=== PATIENT | male | born 1955 | race Caucasian/White ===

== ENCOUNTER 2018-11-03 05:13 | Inpatient (IN) ==
--- NOTE | 2018-10-22 12:02 | PAT Medication Instructions ---
Medication Instructions Date of Service October 22, 2018 Home Medications allopurinol 100 mg PO QPM aspirin [Aspirin Low Dose] 81 mg PO QAM atenolol 25 mg PO QAM atorvastatin 20 mg PO QAM fluticasone propion-salmeterol [Advair Diskus] 1 inh INHALATION Q12H lisinopril-hydrochlorothiazide 1 tab PO QAM metformin 1,000 mg PO BID multivitamin 1 tab PO QAM omega 9-kcb-wmj-fish oil [Fish Oil] 1 cap PO QAM omeprazole 20 mg PO QAM sitagliptin [Januvia] 100 mg PO QPM vitamin B complex [Super B-50 Complex] 1 cap PO QAM ASK your prescriber and surgeon aspirin [Aspirin Low Dose] 81 mg PO QAM DO NOT take the morning of surgery lisinopril-hydrochlorothiazide 1 tab PO QAM metformin 1,000 mg PO BID multivitamin 1 tab PO QAM omega 5-nkm-foa-fish oil [Fish Oil] 1 cap PO QAM vitamin B complex [Super B-50 Complex] 1 cap PO QAM Take morning of surgery With a small sip of water, OTHERWISE NOTHING TO EAT OR DRINK AFTER MIDNIGHT: atenolol 25 mg PO QAM atorvastatin 20 mg PO QAM fluticasone propion-salmeterol [Advair Diskus] 1 inh INHALATION Q12H omeprazole 20 mg PO QAM Take evening before surgery allopurinol 100 mg PO QPM fluticasone propion-salmeterol [Advair Diskus] 1 inh INHALATION Q12H metformin 1,000 mg PO BID sitagliptin [Januvia] 100 mg PO QPM Other Notes If you have any questions please call us at [phone] or [phone] or [phone] or [phone]
--- NOTE | 2018-10-22 13:07 | Anesthesiology Consultation ---
Date of Service October 22, 2018 Assessment & Plan (1) Encounter for pre-operative examination: - No previous anesthesia records. Chart Review Chart Review: Acceptable Risk for Surgery and Patient seen in Pre Admission Testing Consults Requested medical (Dr. Xiong (09/24/18)) Per note from PCP, "I am not aware of any contraindications for him having surgery at this time." Teaching & Discussion Pre-Anesthesia Teaching/Discussion Notes: Instructed NPO after midnight before surgery, except medications with 15 cc of water. Medication instructions provided according to the PAT guidelines. History Surgery Operation Date: 11/03/18 13:30 Proposed Procedures p Left Total Knee Arthroplasty - Bob Billings MD Height/Weight Height: 5 ft 9 in Weight: 118.8 kg Allergies Allergy/AdvReac Type Severity Reaction Status Date / Time No Known Allergies Allergy Unknown Verified 10/15/18 13:14 Medications Home Medications Medication Instructions Recorded Confirmed Last Taken allopurinol 100 mg PO QPM 10/15/18 10/15/18 Unknown aspirin [Aspirin Low Dose] 81 mg PO QAM 10/15/18 10/15/18 Unknown atenolol 25 mg PO QAM 10/15/18 10/15/18 Unknown atorvastatin 20 mg PO QAM 10/15/18 10/15/18 Unknown fluticasone propion-salmeterol 1 inh INHALATION Q12H 10/15/18 10/15/18 Unknown [Advair Diskus] lisinopril-hydrochlorothiazide 1 tab PO QAM 10/15/18 10/15/18 Unknown metformin 1,000 mg PO BID 10/15/18 10/15/18 Unknown multivitamin 1 tab PO QAM 10/15/18 10/15/18 Unknown omega 8-ars-gdv-fish oil [Fish Oil] 1 cap PO QAM 10/15/18 10/15/18 Unknown omeprazole 20 mg PO QAM 10/15/18 10/15/18 Unknown sitagliptin [Januvia] 100 mg PO QPM 10/15/18 10/15/18 Unknown vitamin B complex [Super B-50 1 cap PO QAM 10/15/18 10/15/18 Unknown Complex] Past Medical History Medical History Asthma Diabetes mellitus, type 2 GERD (gastroesophageal reflux disease) History of kidney stones Hyperlipidemia Hypertension Left knee DJD Sleep apnea CPAP Exercise / Class Metabolic Activity II 4-5 Yardwork/Stairs/Walk up hill (Able to climb stairs, although only 1 at a time right now. Denies CP or SOB with activity. Is somewhat limited currently due to knee pain. ) Past Family History Family History Mother Family history of diabetes mellitus Past Surgical History Surgical History History of carpal tunnel release of both wrists History of total right knee replacement Hx of cholecystectomy Hx of hernia repair UMBILICAL Hx of nasal septoplasty Past Anesthesia History No Hx of Anesthesia Complications and No Family Hx of Anesthesia Complications History of PONV No Hx of PONV and No Hx of Motion Sickness Social History Smoking Status: Former smoker Smoking cigarettes per day: 1-1.5 ppd x 8-10 years Do You Dip or Chew Tobacco: No Smoking End Date: 1994 Hx Alcohol Use: No Hx Substance Use: No Review of Systems Patient denies chest pain, shortness of breath, dyspnea on exertion, cough, wheezing, palpitations. +Joint Pain (left knee, neck, wrists) +Acid Reflux (Controlled with current diet and medications) +Wheezing (Rare) Physical Exam Vital Signs BP: 129/80 P: 78 R: 16 T: 98.4 SPO2: 98% on RA Constitutional + obese ENMT Thyromental Distance: < 3.5 Finger Breadths (3) Mallampati Class: II Neck normal visual inspection, + thick neck and + facial hair (Advised (Will trim)); neck extension not limited Respiratory normal respiratory effort Auscultation: lungs clear to auscultation bilaterally Cardiovascular Rate/Rhythm: regular rate and regular rhythm Heart Sounds: no murmur Vessels: no carotid bruit Neurologic moves all extremities Psychiatric Orientation: alert and oriented x 3 Testing Laboratory Results 10/22/18 13:39 PT 10.3 Seconds (9.0-12.0) 10/22/18 12:56 INR 1.0 (0.9-1.1) 10/22/18 12:56 APTT 24.5 Seconds (21.0-31.0) 10/22/18 12:56 Hemoglobin A1c 7.8 % (4.5-5.6) H 10/22/18 13:39 Urine Color Yellow 10/22/18 12:56 Urine Appearance Clear (Clear) 10/22/18 12:56 Urine pH 5.0 (4.5-7.5) 10/22/18 12:56 Ur Specific [place] 1.023 (1.000-1.030) 10/22/18 12:56 Urine Protein Negative (Negative) 10/22/18 12:56 Urine Glucose (UA) 3+ (Negative) H 10/22/18 12:56 Urine Ketones Negative (Negative) 10/22/18 12:56 Urine Nitrite Negative (Negative) 10/22/18 12:56 Ur Leukocyte Esterase Negative (Negative) 10/22/18 12:56 Blood Type A Positive 10/22/18 13:39 Antibody Screen NEGATIVE 10/22/18 13:39 [facility] 09/17/18 SODIUM: 139 POTASSIUM: 4.6 CHLORIDE: 99 CO2: 25 BUN: 20 CREATININE: 1.5 GLUCOSE: 174 Electrocardiogram Date: 10/22/18 Findings: + NSR @ (83) and + no change from (09/07/02) Chest X-Ray Date: 10/22/18 Findings: + NAD
--- NOTE | 2018-10-22 13:57 | XRay Report ---
XR chest Pre-admission PA/Lat CLINICAL HISTORY: Preoperative chest COMPARISON STUDY: No previous studies for comparison. FINDINGS: The cardiac and mediastinal contours are normal. There is no evidence of focal pulmonary co nsolidation. There is no evidence of failure. No pleural effusions are visualized.[ IMPRESSION: No active disease in the chest. Electronically signed by: Woody Estrada M.D. 10/22/2018 1:56 PM
[2018-10-22 15:38] LABS: Appearance Urine Clear (Clear); Bilirubin Urine Negative (Negative); Blood Urine Negative (Negative); Color Urine Yellow; Glucose Urine UA 3+ (Negative); Ketones Urine Negative (Negative); Leukocyte Esterase Urine Negative (Negative); Nitrite Urine Negative (Negative); Protein Urine Negative (Negative); Specific Gravity Urine 1.023 (1.000-1.030); Urobilinogen Urine Negative (Negative)
[2018-10-22 15:40] LABS: Basophils # (auto) 0.07 K/uL (0-0.2); Basophils % (auto) 0.7 %; Eosinophils # (auto) 0.34 K/uL (0-0.5); Eosinophils % (auto) 3.2 %; Hematocrit (blood only) 34.5 % (42-52); Hemoglobin 11.5 g/dL (14.0-18.0); Immature Granulocytes # (auto) 0.06 K/uL (0.00-0.02); Immature Granulocytes % (auto) 0.6 %; Lymphocytes # (auto) 1.99 K/uL (1.2-3.4); Lymphocytes % (auto) 18.9 %; Mean Corpuscular Hgb Conc 33.3 g/dL (32-36); Mean Corpuscular Volume 90.1 fL (80-100); Mean Platelet Volume 10.8 fL (7.4-10.4); Monocytes # (auto) 0.68 K/uL (0.11-0.59); Monocytes % (auto) 6.5 %; Neutrophils # (auto) 7.37 K/uL (1.4-6.5); Neutrophils % (auto) 70.1 %; Platelet Count 290 K/uL (130-400); RDW Coefficient of Variation 14.4 % (11.5-14.5); RDW Standard Deviation 47.3 fL (36.4-46.3); Red Blood Count 3.83 M/uL (4.7-6.1); White Blood Count 10.51 K/uL (4.8-10.8)
[2018-10-22 15:49] LABS: Partial Thromboplastin Ratio 0.9; Partial Thromboplastin Time 24.5 Seconds (21.0-31.0); Prothrombin Time 10.3 Seconds (9.0-12.0)
[2018-10-23 05:43] LABS: Estimated Average Glucose 177 mg/dl; Hemoglobin A1C 7.8 % (4.5-5.6)
--- NOTE | 2018-11-02 20:21 | History and Physical Report ---
DATE OF ADMISSION: 11/03/2018 CHIEF COMPLAINT: Chronic left knee pain. HISTORY OF PRESENT ILLNESS: This is a 63-year-old male patient of Dr. Billings'antwon complaining of chronic left knee pain, longstanding, now progressively getting worse. The patient has failed conservative treatment including a home exercise program and the use of a brace. He has been diagnosed with end-stage osteoarthritis per clinical and radiographic exams. The patient has increased pain with weightbearing activities and his pain does interfere with his activities of daily living. PAST MEDICAL HISTORY: Heart murmur, hypertension, hypercholesterolemia, asthma, sleep apnea with the use of CPAP, diabetes mellitus, osteoarthritis, acid reflux, hiatal hernia, obesity, dental issues. SOCIAL HISTORY: Nonsmoker, nondrinker. PAST SURGICAL HISTORY: Right knee replacement, gallbladder, hernia and sinus surgery. FAMILY HISTORY: Noncontributory. REVIEW OF SYSTEMS: Chronic left knee pain and instability. Otherwise, denies any shortness of breath, chest pain, nausea, vomiting or any other joint complaints. MEDICATIONS: 1. Advair Diskus 250/50 one puff twice daily. 2. Lisinopril/hydrochlorothiazide 20/12.5 one daily. 3. Atenolol 25 mg daily. 4. Omeprazole 20 mg daily. 5. Fluticasone 50 mcg actuation 1 spray daily in each nostril. 6. Aspirin 81 mg daily. 7. Metformin 1000 mg twice daily. 8. Atorvastatin 20 mg daily. 9. Januvia 100 mg daily. 10. Allopurinol 100 mg daily. ALLERGIES: No known drug allergies. PHYSICAL EXAMINATION: GENERAL: Well-developed, well-nourished 63-year-old male in no acute distress. He is alert and oriented x3 and pleasant. HEENT: Normocephalic, atraumatic. Extraocular motions are intact. Pupils are equal and reactive to light. HEART: Regular rate and rhythm, no murmurs are appreciated. LUNGS: Clear. ABDOMEN: Soft and nontender. Bowel sounds are present. EXTREMITIES: Left knee reveals limited range of motion of 0-95 with a varus deformity. He has got medial joint line tenderness. 5/5 strength with pain. Neurologically/neurovascularly he is intact in his left lower extremity. DIAGNOSES: Left knee end-stage osteoarthritis, heart murmur, hypertension, hypercholesterolemia, asthma, sleep apnea with CPAP, diabetes mellitus, osteoarthritis, acid reflux, hiatal hernia, obesity and dental issues. PLAN: The patient was advised of his diagnosis. Indications, risks, benefits, postop course have all been reviewed. The patient wished to proceed with a left total knee arthroplasty. Necessary consent forms, preoperative testing and clearances will be obtained.
--- OUTSIDE RECORDS SUMMARY | 2018-11-03 05:17 | External Medical Summary | Continuity of Care Document ---
:1955 Author Name Jose G Krueger, Provider Address Unavailable Unavailable , Care Team Providers Name Role Phone Unavailable Unavailable Unavailable Zaid Ryan [email or web address] ZAID RYAN M.D. Unavailable Unavailable Unavailable Unavailable Unavailable Assessments Assessed Problems:Encounter for preventive health examination Problems Hearing loss, bilateral (389.9) (H91.93) Obstructive sleep apnea (327.23) (G47.33) Benign essential hypertension (401.1) (I10) Impaired fasting blood sugar (790.21) (R73.01) Acid reflux disease (530.81) (K21.9) Hypercholesterolemia (272.0) (E78.00) Allergic rhinitis (477.9) (J30.9) Asthma (493.90) (J45.909) Allergies and Adverse Reactions No Known Drug Allergies (Allergy) Medications Livalo 2 MG Oral Tablet; Take 1 tablet daily , M.D. Refills: 0 metFORMIN HCl - 850 MG Oral Tablet; Take 1 tablet twice rachel zhou M.D. Refills: 0 Flonase 50 MCG/ACT SUSP; USE 1 TO 2 SPRAYS IN EACH NOSTRIL O NCE DAILY. , M.DNela Quantity: 1 Refills: 0 Omeprazole 20 MG Oral Capsule Delayed Release; TAKE 1 CAPSUL E Leila M.DNela Quantity: 30 Refills: 0 Lisinopril-hydroCHLOROthiazide 20-12.5 MG Oral Tablet; TAKE 1 TABLET DAILY. , M.DNela Quantity: 30 Refills: 0 Advair Diskus 250-50 MCG/DOSE Inhalation Aerosol Powder Breath Activated; INHALE 1 PUFF TWICE DAILY. , M.DNela Quantity: 1 Refills: 0 Ecotrin 325 MG Oral Tablet Delayed Release; Take 1 tablet da jong MNelaDNela Refills: 0 Atenolol 25 MG Oral Tablet; TAKE 1 TABLET DAILY. Mir Ryan Start: 21-Apr-2014 Quantity: 30 Refills: 5 Procedures History of Sinus Surgery Status: Complet ed Immunizations Immunizations not documented Family History Mother Family history of diabetes mellitus (V18.0) (Z83.3) Status: Active FHx: cancer (V16.9) (Z80.9) Status: Active Family history of hypertension (V17.49) (Z82.49) Status: Act toan Father Family history of hypertension (V17.49) (Z82.49) Status: Act toan Sister Family history of hypertension (V17.49) (Z82.49) Status: Act toan Brother Family history of hypertension (V17.49) (Z82.49) Status: Act toan FHx: hypercholesterolemia (V18.19) (Z83.42) Status: Active Social History - Smoking Status Former smoker Plan of Treatment Planned Observations Planned Goals not documented Results No Known Results Results not documented
[2018-11-03] MEDS ORDERED: METOCLOPRAMIDE HCL 10 MG TABLET PO SCH (06:00)
[2018-11-03] MEDS ORDERED: GABAPENTIN 600 MG DOSE PO SCH (06:00)
[2018-11-03] MEDS ORDERED: TRANEXAMIC ACID 1,000 MG **IV Pre-op IV SCH (06:00)
[2018-11-03] MEDS ORDERED: CeleBREX 200 MG CAP PO SCH (06:00)
[2018-11-03] MEDS ORDERED: CEFAZOLIN 2000MG 2,000 MG/15 ML SYR IV SCH (06:00)
[2018-11-03] MEDS ORDERED: ROPIVACAINE 0.5% HCL/PF 150 MG, BUPIVACAINE 0.5% MPF 30 ML, EPINEPHrine 30MG/30ML (OR U... INSTIL SCH (06:00)
[2018-11-03] MEDS ORDERED: FAMOTIDINE 20 MG TAB PO SCH (06:00)
[2018-11-03] MEDS ORDERED: LR 500ML BOLUS, THEN 15ML/HR IV SCH (06:00)
[2018-11-03] MEDS ORDERED: ACETAMINOPHEN 500 MG TAB PO SCH (06:00)
[2018-11-03] MEDS ORDERED: BUPIVACAINE 0.5 % 5 MG/1 ML PF 10ML VIAL ONE (06:23)
[2018-11-03] MEDS ORDERED: ROPIVACAINE 0.5% 5 MG/ML 30 ML VIAL ONE (06:24)
[2018-11-03] MEDS ORDERED: TRANEXAMIC ACID 1,000 MG **IV Intra-op IV SCH (06:30)
[2018-11-03] MEDS ORDERED: MIDAZOLAM HCL 1 MG/ML 2ML VIAL ONE ×3 (06:41→08:29)
[2018-11-03] MEDS ORDERED: ORTHO JOINT ANESTHETIC ONE (06:42)
[2018-11-03] MEDS ORDERED: BACITRACIN INJ 50,000 UNIT VIAL ONE (06:42)
[2018-11-03] MEDS ORDERED: fentaNYL citrate 100 MCG/2 ML VIAL ONE (06:45)
[2018-11-03] MEDS ORDERED: ePHEDrine sulfate 50 MG/ML AMP IV PRN (06:49)
[2018-11-03] MEDS ORDERED: ONDANSETRON INJ 2 MG/ML 2 ML VIAL IV PRN ×2 (06:49→10:58)
[2018-11-03] MEDS ORDERED: ATROPINE SULFATE 0.1 MG/ML 10ML SYR IV PRN (06:49)
--- NOTE | 2018-11-03 06:57 | History & Physical Bridge Note ---
Date of Service November 03, 2018 History & Physical Bridge Note I have examined the patient, reviewed the History & Physical and in the interval since the performance of the History & Physical I have noted the following changes of clinical significance: no changes noted
[2018-11-03] MEDS ORDERED: PHENYLEPHRINE 100MCG/ML 5ML SYR ONE (07:42)
[2018-11-03] MEDS ORDERED: PROPOFOL IV EMULSION 10 MG/ML 20 ML VIAL IV ONE (07:42)
[2018-11-03] MEDS ORDERED: KETAMINE HCL INJ 50 MG/ML 10 ML VIAL ONE ×2 (08:59→09:42)
--- NOTE | 2018-11-03 09:28 | Post Operative Brief Note ---
Immediate Post Op Note v1 Date of Surgery November 03, 2018 Pre & Post Diagnosis Operation Date: 11/03/18 07:00 Pre-Op Diagnosis: Unilateral Primary Osteoarthritis, Left Knee Post-Op Diagnosis: Unilateral Primary Osteoarthritis, Left Knee Procedure Operation Date: 11/03/18 07:00 Actual Procedures p Left Total Knee Arthroplasty(Left) - Bob Billings MD Surgeon Bob Billings MD [employer] Price GUERRERO Estimated Blood Loss 10 Findings Consistent with Post-Op Diagnosis Specimens Bone cuts Drains Hemovac Drain Anesthesia Type MAC Spinal Regional Complications none Disposition Accompanied Patient To Recovery: No Disposition: Recovery Room Overlapping Procedure I was present for: the critical portions of procedure.
[2018-11-03] MEDS: fentaNYL citrate 100 MCG/2 ML VIAL IV PRN ×2 (10:03→10:08)
--- NOTE | 2018-11-03 10:40 | XRay Report ---
XR knee LT 2V routine CLINICAL HISTORY: Surgical Post Op COMPARISON: None. DISCUSSION: Anatomic alignment posttotal left knee arthroplasty. Could contact between prosthetic and underlying bone. Expected postoperative soft tissue change. IMPRESSION: Anatomic alignment posttotal left knee arthroplasty. The above report was generated using voice recognition software. It may contain grammatical, syntax or spelling errors. Electronically signed by: Pirce Meza M.D. 11/03/2018 10:39 AM
[2018-11-03] MEDS ORDERED: HYDROmorphone INJ 0.5 MG/0.5 ML SYR IV PRN (10:58)
[2018-11-03] MEDS ORDERED: MAGNESIUM HYDROXIDE SUSP 30 ML UDC PO PRN (10:58)
[2018-11-03] MEDS ORDERED: NALOXONE HCL 0.4 MG/1 ML VIAL/CARP IV PRN (10:58)
[2018-11-03] MEDS ORDERED: BISACODYL 10 MG SUPP PR PRN (10:58)
[2018-11-03] MEDS ORDERED: PHARMACY GLYCEMIC MGMT CONSULT PRN (11:06)
[2018-11-03] MEDS ORDERED: INSULIN GLARGINE SOLOSTAR 100 UNITS/ML 3 ML PEN SC ONE ×2 (11:30→21:00)
--- NOTE | 2018-11-03 11:33 | Consultation ---
Date of Consultation November 03, 2018 Assessment & Plan (1) Left knee DJD: This is a 63-year-old male who has a known significant past medical history of T2DM, HTN, JAKE on CPAP, asthma, GERD, gout, obesity who presents to [facility] for elective left TKA. POD #[address] Awa FAROOQ 10ml tolerated procedure well pain/wound management per ortho therapy and activity as directed by ortho incentive spirometry q1ha trend H/H (2) Diabetes mellitus, type 2: A1C 7.8 on multi drug regimen of metformin and januvia (plan to start jardiance as outpt after procedure) ortho consulted glycemic pharmacist appreciate their input (3) Hypertension: blood pressure stable on lisinopril/hctz, atenolol hold lisinopril/hctz for now until volume status and blood pressure re evaluated in am. monitor (4) Hyperlipidemia: continue statin (5) Sleep apnea: CPAP at HS (6) Asthma: no acute exac continue advair (7) GERD (gastroesophageal reflux disease): continue PPI (8) DVT prophylaxis: ASA BID Per ortho Disposition: per ortho Follow up: PCP Dr. Xiong upon discharge Patient was seen and examined in collaboration with Dr. Spear, please see addendum Thank you for this consultation. We will follow the patient with you during their hospital stay. You can reach a member of the [facility] Hospitalist Team 29/09 via pager @ [phone]. Supervising Physician Co-Signing Physician Notes Patient is seen and examined postop after having left knee TKA by Dr. Billings today. Complains of pain at surgical site. Denies any chest pain, shortness of breath, dizziness, nausea, abdominal pain. On exam patient is obese, no apparent distress, normocephalic atraumatic, lungs are clear to auscultation, S1-S2, no murmur, abdomen soft nontender, grossly no focal neurological deficits, left knee surgical site in dressing, no pedal edema. S/P left TKA. Monitor for postop anemia, continue bowel regimen to prevent constipation. Pain control, wound care and activity as per primary team. DM II: Continue insulin sliding scale. Hold p.o. home regimen. Asthma: Well-controlled, no signs of exacerbation. Continue home inhaler I personally reviewed the record. Patient is interviewed and examined at bedside. Patient's care is coordinated with Trini Gore PA-C. Please refer to the documentation above for details of patient's presentation and for discussion of other issues. History of Present Illness Requesting Physician: Dr. Billings Reason for Consultation: Postop medical management Attending Physician: Bob Billings MD History of Present Illness This is a 63-year-old male who has a known significant past medical history of T2DM, HTN, JAKE on CPAP, asthma, GERD, gout, obesity who presents to [facility] for elective left TKA. Patient tolerated procedure well. Complains of 4/10 left lower extremity pain. Otherwise feels okay. Denies fever, chills, sweats, lightheaded, dizziness, chest pain, shortness of breath, nausea, vomiting, abdominal pain, diarrhea. He has not urinated yet since surgery. He is using incentive spirometry. We have been consulted for medical management. Allergies Allergy/AdvReac Type Severity Reaction Status Date / Time No Known Allergies Allergy Unknown Verified 11/03/18 05:38 Home Medications Home Medications Medication Instructions Recorded Confirmed Type allopurinol 100 mg PO QPM 10/15/18 11/03/18 History aspirin [Aspirin Low Dose] 81 mg PO QAM 10/15/18 11/03/18 History atenolol 25 mg PO QAM 10/15/18 11/03/18 History atorvastatin 20 mg PO QPM 10/15/18 11/03/18 History fluticasone propion-salmeterol 1 inh INHALATION Q12H 10/15/18 11/03/18 History [Advair Diskus] lisinopril-hydrochlorothiazide 1 tab PO QAM 10/15/18 11/03/18 History metformin 1,000 mg PO BID 10/15/18 11/03/18 History multivitamin 1 tab PO QAM 10/15/18 11/03/18 History omega 4-urz-vct-fish oil [Fish Oil] 1 cap PO QAM 10/15/18 11/03/18 History omeprazole 20 mg PO QAM 10/15/18 11/03/18 History sitagliptin [Januvia] 100 mg PO QPM 10/15/18 11/03/18 History vitamin B complex [Super B-50 1 cap PO QPM 10/15/18 11/03/18 History Complex] Patient History Medical History DVT prophylaxis Asthma Sleep apnea CPAP Hyperlipidemia Hypertension Diabetes mellitus, type 2 GERD (gastroesophageal reflux disease) History of kidney stones Left knee DJD Surgical History History of total right knee replacement Hx of cholecystectomy Hx of hernia repair UMBILICAL History of carpal tunnel release of both wrists Hx of nasal septoplasty Family History Mother Family history of diabetes mellitus Myocardial infarction Father No problems noted. Social History Preferred Language: Frisian Communication Ability: Effective Beliefs That Will Affect Care: None Current Living Situation: Alone Feels Safe at Home: Yes Smoking Status: Former smoker Cigarettes Per Day: 1-1.5 ppd x 8-10 years ; Do You Dip or Chew Tobacco: No ; Smoking End Date: 1994 ; Second Hand Exposure: Yes (OCCASSIONALLY) ; Hx Alcohol Use: No Hx Substance Use: No Review of Systems Review of Systems: All systems reviewed & are unremarkable except as noted in HPI & below Physical Exam Physical Exam: Constitutional: WD/WN, vitals as above, NAD, sitting up in bed, pleasant, conversing easily Head: Normocephalic, Atraumatic Eyes: PERRL, conjunctivae normal, anicteric sclerae ENMT: external ear and nose normal, oropharynx normal Neck: trachea midline, no thyromegaly normal visual inspection Respiratory: normal respiratory effort, lungs clear to auscultation, no wheeze, rales, rhonchi. Normal insp/exp effort, no accessory muscle use Cardiovascular: RRR, S1S2. no edema Vessels: no JVD or carotid bruit Chest: normal inspection of chest Abdomen: obese abdomen, normal bowel sounds, soft, nontender, no hepatosplenomegaly Musculoskeletal: LLE Dressing CDI, no lower ext edema, no cyanosis or clubbing, extremities motor strength 5/5 Skin: no rashes, warm and dry normal turgor Neurologic: PERRL, EOMI, accommodation nl, no face palsy, no dysarthria CN's II-XI intact bilaterally and moves all extremities Psychiatric: A+Ox3, euthymic affect Lymphatic: no cervical or axillary lymphadenopathy : deferred Results & Data Vital Signs (Past 12 Hours) Vital Signs Temp Pulse Pulse Resp BP Pulse Ox 11/03/18 11:20 87 18 115/70 98 11/03/18 10:45 36.9 C 89 18 114/70 100 11/03/18 10:30 82 16 111/72 99 11/03/18 10:20 36.4 C L 85 18 117/75 100 11/03/18 10:10 79 18 120/75 100 11/03/18 10:00 78 18 123/75 100 11/03/18 09:52 36.8 C 85 18 122/78 96 11/03/18 05:45 36.8 C 78 20 126/77 99 Laboratory Results Preop lab work CBC: WBC 10.5, hemoglobin 11.5, hematocrit 34.5, platelet 290 A1c 7.8 Urinalysis negative, +3 glucose Diagnostic Findings L Knee Xray: IMPRESSION: Anatomic alignment posttotal left knee arthroplasty. CXR:IMPRESSION: No active disease in the chest. Medications Administered Discontinued Medications Acetaminophen (Tylenol) 1,000 mg PO PREOP MARYANN Stop: 11/03/18 18:00 Last Admin: 11/03/18 06:13 Dose: 1,000 mg Documented by: [id number] Bacitracin (Bacitracin) Confirm Administered Dose 50,000 units .ROUTE .K-MED ONE Stop: 11/03/18 06:43 Last Admin: 11/03/18 07:55 Dose: 50,000 units Documented by: [id number] Celecoxib (Celebrex) 200 mg PO PREOP MARYANN Stop: 11/03/18 18:00 Last Admin: 11/03/18 06:13 Dose: 200 mg Documented by: [id number] Famotidine (Pepcid) 20 mg PO PREOP MARYANN Stop: 11/03/18 18:00 Last Admin: 11/03/18 06:13 Dose: 20 mg Documented by: [id number] Fentanyl Citrate (Fentanyl Citrate) 25 mcg IV Q5M PRN PRN Reason: PACU Use Only-Pain Stop: 11/03/18 11:49 Last Admin: 11/03/18 10:08 Dose: 25 mcg Documented by: [id number] Admin: 11/03/18 10:03 Dose: 25 mcg Documented by: [id number] Gabapentin (Neurontin) 600 mg PO PREOP MARYANN Stop: 11/03/18 18:00 Last Admin: 11/03/18 06:13 Dose: 600 mg Documented by: [id number] Lactated Ringer's (Lr) 1,000 mls @ 15 mls/hr IV .Q24H MARYANN Stop: 11/03/18 18:00 Last Infusion: 11/03/18 07:07 Dose: 0 mls/hr Documented by: [id number] Infusion: 11/03/18 06:25 Dose: 15 mls/hr Documented by: [id number] Admin: 11/03/18 05:55 Dose: 999 mls/hr Documented by: [id number] Cefazolin Sodium (Ancef 2000mg) 2,000 mg in 15 mls @ 3.75 mls/min IV PREOP MARYANN Stop: 11/03/18 18:00 Last Admin: 11/03/18 07:07 Dose: 3.75 mls/min Documented by: [id number] Ropivacaine 150 mg/Bupivacaine HCl 30 ml/Epinephrine HCl 0.15 mg/Ketorolac Tromethamine 30 mg/Ketamine HCl 10 mg/ Clonidine HCl 100 mcg/ Sodium Chloride 92.35 mls @ 0 mls/hr INSTIL PREOP MARYANN Stop: 11/03/18 18:00 Last Admin: 11/03/18 09:12 Dose: 93.35 mls/hr Documented by: [id number] Tranexamic Acid 1,000 mg/ (Sodium Chloride) 110 mls @ 660 mls/hr IV TODAY@0600 MARYANN Stop: 11/03/18 18:00 Last Infusion: 11/03/18 07:08 Dose: 0 mls/hr Documented by: [id number] Admin: 11/03/18 06:58 Dose: 660 mls/hr Documented by: [id number] Metoclopramide HCl (Reglan) 10 mg PO PREOP MARYANN Stop: 11/03/18 18:00 Last Admin: 11/03/18 06:13 Dose: 10 mg Documented by: [id number] ECG Rate (beats per minute): 83 Rhythm: normal sinus
--- NOTE | 2018-11-03 11:38 | Pharmacy Report ---
Glycemic Control Consultation - Date of Service November 03, 2018 - Scope Scope: Glycemic Pharmacist consulted for glycemic control and to write orders per [facility] inpatient glycemic control protocol - Objective Weight: 118.3 kg Accuchecks BSG (last 24hrs): 11/03/18 11/03/18 05:37 09:58 POC Glucose 172 H 154 H HbA1c: Hemoglobin A1c 7.8 % (4.5-5.6) H 10/22/18 13:39 - Recent Pertinent Medications Outpatient Anti-diabetic Regimen: * Metformin 1 g po BID * Sitagliptin 100 mg po qAM * A1c = 7.8 % on 10/22/18 Risk Factors for Insulin Resistance: * Steroids: none (did use ortho joint mix, but it did not contain dexamethasone) * Infection: cefazolin periop * Recent Surgery: POD 0 s/p L TKA * Diet: T2DM - Assessment & Plan Assessment & Plan: ASSESSMENT: * 63 yo M s/p L TKA early this AM. Pharmacy consulted for glycemic management post-op. * Pre-op BSG 172 mg/dL and post-op BSG 154 mg/dL. Would like to keep all BSG's less than 150 mg/dL in the immediate post-op period to help facilitate wound healing and prevent infection * Will initiate Lantus at slightly less than total daily mild stress estimate. This may not be aggressive enough, but hesitant to be more aggressive in a patient who did not receive steroids and is not on insulin as an outpatient. Therefore will give additional Lantus this evening if BSG > 180 mg/dL * Will utilize weight-based moderate stress estimate for Novolog parameters and add one overnight check PLAN FOR INPATIENT GLYCEMIC CONTROL: * Hold outpatient oral diabetes medications * Basal insulin * Lantus 20 units SQ x1 now, with an additional 10 units tonight if BSG > 180 mg/dL * Bolus insulin * NovoLog per scale ACHS and one overnight check * Goal Range: 110-140 mg/dL * Correction Factor: 20 mg/dL/unit * Nutritional / Prandial insulin per carb ratio of 1 unit per 7 grams CHO consumed * Please note that the plan above was derived based on current level of insulin resistance and hospital stress. These recommendations are appropriate for inpatient admission only. Plan of care upon discharge will need to be reassessed to avoid potential outpatient hypo/hyperglycemia. Thank you.
[2018-11-03] MEDS: OXYCODONE HCL IR 5 MG TAB (IMMEDIATE RELEASE) PO PRN ×2 (12:02→20:22)
[2018-11-03] MEDS: FLUTICASONE/SALMETEROL 250/50 (ADVAIR) 14 PUFF/1 INHALER INH SCH ×2 (13:00→22:09)
[2018-11-03] MEDS: INSULIN ASPART 100 UNITS/ML 3 ML PEN SC SCH ×3 (13:04→22:20)
[2018-11-03] MEDS: ACETAMINOPHEN 500 MG TAB PO SCH ×2 (13:48→22:04)
--- NOTE | 2018-11-03 14:19 | Anesthesiology Progress Note ---
Date of Service November 03, 2018 Anesthesia Post Procedure Vital Signs Vital Signs: Temp Pulse Pulse Resp BP Pulse Ox 11/03/18 13:28 82 18 94/61 L 95 11/03/18 13:25 36.4 C L 82 18 107/69 95 11/03/18 12:33 36.5 C 81 18 112/74 95 11/03/18 11:20 87 18 115/70 98 11/03/18 10:45 36.9 C 89 18 114/70 100 11/03/18 10:30 82 16 111/72 99 11/03/18 10:20 36.4 C L 85 18 117/75 100 11/03/18 10:10 79 18 120/75 100 11/03/18 10:00 78 18 123/75 100 11/03/18 09:52 36.8 C 85 18 122/78 96 11/03/18 05:45 36.8 C 78 20 126/77 99 Pain Intensity Left Leg: Pain Intensity: 4 Transfer of Care Handoff Completed per policy Notes Mental Status: alert / awake / arousable and participated in evaluation Patient Amnestic to Procedure: Yes Nausea / Vomiting: adequately controlled Pain: adequately controlled Airway Patency, RR, SpO2: stable & adequate BP & HR: stable & adequate Hydration State: stable & adequate Neuraxial Anesthesia: was administered and sensory block is resolving Anesthetic Complications: no major complications apparent and Pt Satisfied with anesthetic care
[2018-11-03] MEDS: SODIUM CHLORIDE 0.9% 1000ML 1,000 ML IV SCH ×2 (15:04→21:13)
[2018-11-03] MEDS: CEFAZOLIN 2000MG 2,000 MG/15 ML SYR IV SCH ×2 (15:04→22:09)
--- NOTE | 2018-11-03 17:22 | Operative Report ---
Post Operative Report Pre & Post Diagnosis Operation Date: 11/03/18 07:00 Pre-Op Diagnosis: Unilateral Primary Osteoarthritis, Left Knee Post-Op Diagnosis: Unilateral Primary Osteoarthritis, Left Knee Procedure Operation Date: 11/03/18 07:00 Actual Procedures p Left Total Knee Arthroplasty(Left) - Bob Billings MD Surgeon Bob Billings MD Radio Electronics Technician Price GUERRERO Estimated Blood Loss 10 Findings Consistent with Post-Op Diagnosis Specimens Bone cuts Drains 2 Hemovac Anesthesia Type MAC Spinal Regional Complications none Disposition Accompanied Patient To Recovery: No Disposition: Recovery Room Indications 63-year-old male history of right knee replacement many years ago. Patient has very severe advanced osteoarthritis of his left knee now. He has laxity of his lateral collateral ligament opening of the lateral compartment compression in the medial compartment bone loss in the medial tibia varus knee subluxation of the femur [id number] large tricompartmental osteophytes. Description of Procedure Patient taken to the operating room the size under spinal MAC regional anesthesia. Patient was placed supine on the operating table. A pneumatic tourniquet was placed about the left obese upper thigh. The left lower extremity was prepped and draped in sterile fashion. Knee exam demonstrated varus knee tight medial compartment positive Megha exam laxity lateral collateral ligament flexion contracture of 5 to 10 degrees with flexion 125 degrees. [id number] crepitation. The leg was elevated exsanguinated with an Esmarch bandage and pneumatic tourniquet was raised to 350 millimeters of mercury. Skin incised sharply in longitudinal fashion. Subcutaneous flaps elevated. Incision was made through the medial retinaculum extending up in the mid third of the quadriceps tendon and down to the medial tibial tubercle. Intra-articular findings demonstrated severe tricompartmental DJD grade 4 osteoarthritis patellofemoral joint medial compartment and medial aspect lateral femoral condyle and tibial spine with absent ACL with large osteophytes tricompartmental including posterior on the tibia and femoral condyles. The [employer] triBlackLocuslon total knee arthroplasty system was used. To expose the knee the infrapatellar fat pad was resected. The meniscal remnants and cruciate ligaments were resected. The anterior fat pad over the femur in the area of the anterior flange of the femoral component was resected. Lateral synovial bands release. The femur was exposed. An intramedullary drill hole was made into the canal. A guide wyatt was placed. Distal femoral cutting guide was adjusted to resect a 5 degree valgus cut with 10 millimeters distal femur resected. The knee was extended and a subperiosteal peel lateral release was performed around the patella. Patella width was measured and width was reproduced using a freehand cut technique and a 36 x 10 symmetrical patella component. The 3 drill holes were made and the excess lateral facet was beveled off to prevent any impingement. Attention was taken back to the femur which was exposed with retractors and the femoral sizing guide was pinned in position. The drill holes were placed in 3 of external rotation to match epicondylar axis. Femur sized for a 7 component. The 4-in-1 cutting block was placed and then the anterior po sterior and chamfer cuts are made. The tibia was then subluxed. The external tibial cutting guide was just to make a perpendicular cut to the long axis of the tibia below the most deficient bone loss side. A lamina time motion analyst was used and the flexion extension gaps were balanced. This required a medial posterior medial release. All posterior osteophytes removed from the femur and the tibia. Pie crusting of the MCL was also required to balance the gaps.. All meniscal remnants were resected. The tibia exposed and the trial tibial component size 6 was externally rotated in line with the tibial tubercle and pinned in position. The drill and punch for stem was used. The notch cutting device was centered appropriately and the femoral notch cut was made. The femoral trial was inserted. Trial tibial inserts were placed and size 13 constrained gave balanced ligaments through flexion and extension. This was used to the the excessive lateral collateral ligament laxity some residual play with the high flex component. Patella tracking was assessed. The patella tracked laterally with some liftoff so a formal lateral release was performed leaving majority of synovium intact and the patella subsequently tracked centrally.. The trial components were then removed and the orthomix anesthetic cocktail was injected per protocol. The knee was then copiously irrigated with pulsatile lavage antibiotic solution. Final components were then cemented with Simplex cement. Final components were Ruby triathlon size 7 posterior stabilized femur with femoral distal fixation pegs, triathlon total knee universal tibial baseplate size 6 with a 12 x 50 mm cemented stem. Symmetrical 36 x 10 mm X3 poly-patella. X3 polyethylene size 6,13 TS tibial insert. While the cement cured the Beta dine soak was used per protocol. After cement cured further pulsatile lavage irrigation performed and 2 Hemovac drains were brought out laterally. The quadriceps tendon and medial retinaculum were closed with figure of 8 #1 Vicryl sutures. The knee was taken through full range of motion and the repair was secure. There was 0 through 125 degrees range of motion. The subcutaneous tissues were closed with 2-0 Vicryl sutures. Skin was closed with cy. Sterile dressings were applied. Patient procedure well. Price GUERRERO was my physician activities assistant who assisted in patient positioning prepping and draping,leg positioning ,soft tissue retraction and instrument management and participated in the closing and will participate in postoperative care of the patient. The patient tolerated the procedure well. I attest to the content of the Intraoperative Record and any orders documented therein. Any exceptions are noted below.
[2018-11-03] MEDS: CeleBREX 200 MG CAP PO SCH (20:23)
[2018-11-03] MEDS: DOCUSATE SODIUM 100 MG CAP PO SCH (22:03)
[2018-11-03] MEDS: SENNA 8.6 MG TAB PO SCH (22:04)
[2018-11-03] MEDS: ASPIRIN 81 MG ECTAB PO SCH (22:06)
[2018-11-03] MEDS: ATORVASTATIN 20 MG TAB PO SCH (22:06)
[2018-11-03] MEDS: VITAMIN B COMPLEX TAB PO SCH (22:07)
[2018-11-03] MEDS: ALLOPURINOL 100 MG TAB PO SCH (22:08)
[2018-11-04] MEDS ORDERED: INSULIN ASPART 100 UNITS/ML 3 ML PEN SC ONE (02:00)
[2018-11-04] MEDS: ACETAMINOPHEN 500 MG TAB PO SCH ×3 (05:20→21:10)
[2018-11-04] MEDS: OXYCODONE HCL IR 5 MG TAB (IMMEDIATE RELEASE) PO PRN ×3 (05:25→18:38)
[2018-11-04 05:39] LABS: Hematocrit (blood only) 28.1 % (42-52); Hemoglobin 9.4 g/dL (14.0-18.0); Mean Corpuscular Hemoglobin 29.8 pg (25-34); Mean Corpuscular Hgb Conc 33.5 g/dL (32-36); Mean Corpuscular Volume 89.2 fL (80-100); Mean Platelet Volume 9.4 fL (7.4-10.4); Platelet Count 192 K/uL (130-400); RDW Coefficient of Variation 14.4 % (11.5-14.5); RDW Standard Deviation 47.2 fL (36.4-46.3); Red Blood Count 3.15 M/uL (4.7-6.1); White Blood Count 9.42 K/uL (4.8-10.8)
[2018-11-04 06:05] LABS: BUN Creatinine Ratio 15.7 (10-20); Calcium 7.6 mg/dl (8.5-10.1); Est GFR (African American) 46.4; Potassium 4.3 mmol/L (3.5-5.1)
--- NOTE | 2018-11-04 08:26 | Anesthesiology Progress Note ---
Date of Service November 04, 2018 Anesthesia Post Procedure Vital Signs Vital Signs: Temp Pulse Pulse Resp BP Pulse Ox 11/04/18 07:17 36.6 C 83 18 97/66 L 97 11/04/18 03:40 36.4 C L 87 16 101/65 95 11/03/18 23:41 36.9 C 82 18 96/62 L 96 11/03/18 19:25 36.4 C L 82 16 116/72 98 11/03/18 15:56 36.3 C L 75 18 114/75 98 11/03/18 13:28 82 18 94/61 L 95 11/03/18 13:25 36.4 C L 82 18 107/69 95 11/03/18 12:33 36.5 C 81 18 112/74 95 11/03/18 11:20 87 18 115/70 98 11/03/18 10:45 36.9 C 89 18 114/70 100 11/03/18 10:30 82 16 111/72 99 11/03/18 10:20 36.4 C L 85 18 117/75 100 11/03/18 10:10 79 18 120/75 100 11/03/18 10:00 78 18 123/75 100 11/03/18 09:52 36.8 C 85 18 122/78 96 Pain Intensity Left Leg: Pain Intensity: 3 Notes Mental Status: alert / awake / arousable and participated in evaluation Patient Amnestic to Procedure: Yes Nausea / Vomiting: adequately controlled Pain: adequately controlled Airway Patency, RR, SpO2: stable & adequate BP & HR: stable & adequate Hydration State: stable & adequate Neuraxial Anesthesia: sensory block resolved Anesthetic Complications: Pt Satisfied with anesthetic care
[2018-11-04] MEDS: PANTOprazole 40 MG TAB PO SCH (08:27)
[2018-11-04] MEDS: CeleBREX 200 MG CAP PO SCH (08:28)
[2018-11-04] MEDS: ASPIRIN 81 MG ECTAB PO SCH ×2 (08:28→21:08)
[2018-11-04] MEDS: DOCUSATE SODIUM 100 MG CAP PO SCH ×2 (08:28→21:08)
[2018-11-04] MEDS: MULTIVITAMIN TAB PO SCH (08:28)
[2018-11-04] MEDS: INSULIN ASPART 100 UNITS/ML 3 ML PEN SC SCH ×4 (08:33→21:12)
[2018-11-04] MEDS ORDERED: INSULIN GLARGINE SOLOSTAR 100 UNITS/ML 3 ML PEN SC ONE ×2 (08:45→09:00)
--- NOTE | 2018-11-04 08:51 | Hospitalist Progress Note ---
Date of Service November 04, 2018 Assessment & Plan (1) Left knee DJD: This is a 63-year-old male who has a known significant past medical history of T2DM, HTN, JAKE on CPAP, asthma, GERD, gout, obesity who presents to [facility] for elective left TKA. POD #[address] Awa FAROOQ 10ml; hemovac drain 635ml tolerated procedure well pain/wound management per ortho therapy and activity as directed by ortho incentive spirometry q1ha trend H/H (2) Anemia: Hemoglobin 11.5 preoperatively Hemoglobin today 9.4 Expected acute blood loss anemia repeat labs in a.m. (3) CKD (chronic kidney disease) stage 3, GFR 30-59 ml/min: Baseline creatinine 1.5-1.6 Creatinine 1.79 today Likely secondary to postoperative state Recommend avoiding NSAIDs or nephrotoxic agents Celebrex placed on hold (4) Diabetes mellitus, type 2: A1C 7.8 on multi drug regimen of metformin and januvia (plan to start jardiance as outpt after procedure) ortho consulted glycemic pharmacist appreciate their input blood sugar controlled (5) Hypertension: blood pressure on low side this morning continue to hold lisinopril/hctz. Also atenolol held this morning encouraged oral fluids, he is asymptomatic monitor Re eval need to restart meds in am. (6) Hyperlipidemia: continue statin (7) Sleep apnea: CPAP at HS (8) Asthma: no acute exac continue advair (9) GERD (gastroesophageal reflux disease): continue PPI (10) Morbid obesity: Encouraged lifestyle modifications BMI 38.5 (11) DVT prophylaxis: ASA BID Per ortho Disposition: per ortho Follow up: PCP Dr. Xiong upon discharge Patient was seen and examined in collaboration with Dr. Spear, please see addendum Thank you for this consultation. We will follow the patient with you during their hospital stay. You can reach a [facility] via pager @ [phone]. Supervising Physician Co-Signing Physician Notes Patient is seen and examined at bedside. Leg pain at surgical site is controlled. +flatus, No BM yet. Cr slightly up. Celebrex held. Encouraged to increase oral fluids. Denies any chest pain, shortness of breath, dizziness, nausea, abdominal pain. On exam patient is obese, no apparent distress, normocephalic atraumatic, lungs are clear to auscultation, S1-S2, no murmur, abdomen soft nontender, grossly no focal neurological deficits, left knee surgical site in dressing, no pedal edema. S/P left TKA POD #1. Acute blood loss anemia. Monitor CBC. continue bowel regimen to prevent constipation. Pain control, wound care, DVT Px and activity as per primary team. DM II: Continue insulin sliding scale. Hold p.o. home regimen. Asthma: Well-controlled, no signs of exacerbation. Continue home inhaler CKD III: monitor renal function. agree with holding celebrex. Cr slightly up. Encourage increased oral fluid intake. I personally reviewed the record. Patient is interviewed and examined at bedside. Patient's care is coordinated with Trini Gore PA-C. Please refer to the documentation above for details of patient's presentation and for discussion of other issues. Subjective Patient seen and examined in room 321. Follow-up for S/P POD #1 left TKA. Overall feels well this morning. Complains of increased pain to left knee with ambulation. Denies chest pain, shortness of breath, nausea, vomiting, dizziness, lightheadedness. No BM but is passing flatulence. He is urinating without difficulty. Nursing reports blood pressure on lower side; therefore, atenolol was held this morning. Review of Systems Review of Systems: All systems reviewed & are unremarkable except as noted in HPI & below Physical Exam Physical Exam: Gen: WD/WN, male, sitting up in bed, NAD, A&O x3 HEENT: Normocephalic, atraumatic, conjunctivae moist, sclerae anicteric, mucous membranes moist. Lung: Clear to Auscultation bilaterally, no wheezes/rales/rhonchi Heart: Regular rate, regular rhythm, no murmurs, rubs, or gallops Abdomen: Protuberant abdomen, soft, NT, ND +BS x 4 Extremities: LLE TKA dressing CDI, hemovac in place, SCD/TEDS in place Skin: Warm, no rash, negative turgor. Results & Data Vital Signs (Past 12 Hours) Vital Signs Temp Pulse Resp BP Pulse Ox 11/04/18 08:25 85 104/66 11/04/18 07:17 36.6 C 83 18 97/66 L 97 11/04/18 03:40 36.4 C L 87 16 101/65 95 11/03/18 23:41 36.9 C 82 18 96/62 L 96 Laboratory Results Short CBC 11/04/18 Range/Units 05:20 WBC 9.42 (4.8-10.8) K/uL Hgb 9.4 L (14.0-18.0) g/dL Hct 28.1 L (42-52) % Plt Count 192 (130-400) K/uL BMP 11/04/18 05:20 Sodium 139 Potassium 4.3 Chloride 107 Carbon Dioxide 25 BUN 28 H Creatinine 1.79 H Glucose 147 H Calcium 7.6 L Medications Administered Acetaminophen (Tylenol) 1,000 mg PO Q8 MARYANN Stop: 12/03/18 13:59 Last Admin: 11/04/18 05:20 Dose: 1,000 mg Documented by: [id number] Admin: 11/03/18 22:04 Dose: 1,000 mg Documented by: [id number] Admin: 11/03/18 13:48 Dose: 1,000 mg Documented by: [id number] Allopurinol (Zyloprim) 100 mg PO QPM MARYANN Stop: 12/03/18 20:59 Last Admin: 11/03/18 22:08 Dose: 100 mg Documented by: [id number] Aspirin (Ecotrin Ectab) 81 mg PO BID MARYANN Stop: 12/03/18 20:59 Last Admin: 11/04/18 08:28 Dose: 81 mg Documented by: [id number] Admin: 11/03/18 22:06 Dose: 81 mg Documented by: [id number] Atenolol (Tenormin) 25 mg PO QAM MARYANN Stop: 12/04/18 08:59 Last Admin: 11/04/18 08:28 Dose: Not Given Documented by: [id number] Atorvastatin Calcium (Lipitor) 20 mg PO QPM MARYANN Stop: 12/03/18 20:59 Last Admin: 11/03/18 22:06 Dose: 20 mg Documented by: [id number] Celecoxib (Celebrex) 200 mg PO BID MARYANN Stop: 12/03/18 20:59 Last Admin: 11/04/18 08:28 Dose: 200 mg Documented by: [id number] Admin: 11/03/18 20:23 Dose: 200 mg Documented by: [id number] Docusate Sodium (Colace) 100 mg PO BID [facility] Stop: 12/03/18 20:59 Last Admin: 11/04/18 08:28 Dose: 100 mg Documented by: [id number] Admin: 11/03/18 22:03 Dose: 100 mg Documented by: [id number] Insulin Aspart (Novolog Flexpen) 0 units SC ACHS [facility]; Protocol Stop: 12/03/18 11:29 Last Admin: 11/04/18 08:33 Dose: 10 units Documented by: [id number] Cosigned by: [id number] Admin: 11/03/18 22:20 Dose: Not Given Documented by: [id number] Cosigned by: [id number] Admin: 11/03/18 17:50 Dose: 9 units Documented by: [id number] Cosigned by: [id number] Admin: 11/03/18 13:04 Dose: 5 units Documented by: [id number] Cosigned by: [id number] Multivitamins (Multivitamin Tab) [facility] [place] [place] Stop: 12/04/18 08:59 Last Admin: 11/04/18 08:28 Dose: 1 tab Documented by: [id number] Oxycodone HCl (Roxicodone Immediate Rel) 5 - 10 mg PO Q4H PRN PRN Reason: Pain Stop: 11/17/18 10:57 Last Admin: 11/04/18 05:25 Dose: 10 mg Documented by: [id number] Admin: 11/03/18 20:22 Dose: 10 mg Documented by: [id number] Admin: 11/03/18 12:02 Dose: 10 mg Documented by: [id number] Pantoprazole Sodium (Protonix) 40 mg PO [facility]; Protocol Stop: 12/04/18 08:59 Last Admin: 11/04/18 08:27 Dose: 40 mg Documented by: [id number] Fluticasone/Salmeterol (Advair Diskus 250/50) 1 puffs INH Q12H [facility] Stop: 12/03/18 11:29 Last Admin: 11/03/18 22:09 Dose: 1 puffs Documented by: [id number] Admin: 11/03/18 13:00 Dose: 1 puffs Documented by: [id number] Sennosides (Senokot) 17.2 mg PO HS [facility] Stop: 12/03/18 20:59 Last Admin: 11/03/18 22:04 Dose: 17.2 mg Documented by: [id number] Vitamin B Complex (Vitamin B Complex) 1 tab PO QPM MARYANN Stop: 12/03/18 20:59 Last Admin: 11/03/18 22:07 Dose: 1 tab Documented by: [id number] Discontinued Medications Acetaminophen (Tylenol) 1,000 mg PO PREOP MARYANN Stop: 11/03/18 18:00 Last Admin: 11/03/18 06:13 Dose: 1,000 mg Documented by: [id number] Bacitracin (Bacitracin) Confirm Administered Dose 50,000 units .ROUTE .STK-MED ONE Stop: 11/03/18 06:43 Last Admin: 11/03/18 07:55 Dose: 50,000 units Documented by: [id number] Celecoxib (Celebrex) 200 mg PO PREOP MARYANN Stop: 11/03/18 18:00 Last Admin: 11/03/18 06:13 Dose: 200 mg Documented by: [id number] Famotidine (Pepcid) 20 mg PO PREOP MARYANN Stop: 11/03/18 18:00 Last Admin: 11/03/18 06:13 Dose: 20 mg Documented by: [id number] Fentanyl Citrate (Fentanyl Citrate) 25 mcg IV Q5M PRN PRN Reason: PACU Use Only-Pain Stop: 11/03/18 11:49 Last Admin: 11/03/18 10:08 Dose: 25 mcg Documented by: [id number] Admin: 11/03/18 10:03 Dose: 25 mcg Documented by: [id number] Gabapentin (Neurontin) 600 mg PO PREOP MARYANN Stop: 11/03/18 18:00 Last Admin: 11/03/18 06:13 Dose: 600 mg Documented by: [id number] Lactated Ringer's (Lr) 1,000 mls @ 15 mls/hr IV .Q24H MARYANN Stop: 11/03/18 18:00 Last Infusion: 11/03/18 07:07 Dose: 0 mls/hr Documented by: [id number] Infusion: 11/03/18 06:25 Dose: 15 mls/hr Documented by: [id number] Admin: 11/03/18 05:55 Dose: 999 mls/hr Documented by: [id number] Cefazolin Sodium (Ancef 2000mg) 2,000 mg in 15 mls @ 3.75 mls/min IV PREOP MARYANN Stop: 11/03/18 18:00 Last Admin: 11/03/18 07:07 Dose: 3.75 mls/min Documented by: [id number] Ropivacaine 150 mg/Bupivacaine HCl 30 ml/Epinephrine HCl 0.15 mg/Ketorolac Tromethamine 30 mg/Ketamine HCl 10 mg/ Clonidine HCl 100 mcg/ Sodium Chloride 92.35 mls @ 0 mls/hr INSTIL PREOP [facility] Stop: 11/03/18 18:00 Last Admin: 11/03/18 09:12 Dose: 93.35 mls/hr Documented by: [id number] Tranexamic Acid 1,000 mg/ (Sodium Chloride) 110 mls @ 660 mls/hr IV TODAY@0600 [facility] Stop: 11/03/18 18:00 Last Infusion: 11/03/18 07:08 Dose: 0 mls/hr Documented by: [id number] Admin: 11/03/18 06:58 Dose: 660 mls/hr Documented by: [id number] Tranexamic Acid 1,000 mg/ (Sodium Chloride) 110 mls @ 660 mls/hr IV 0630 [facility] Stop: 11/03/18 18:00 Last Admin: 11/03/18 11:56 Dose: Not Given Documented by: [id number] Cefazolin Sodium (Ancef 2000mg) 2,000 mg in 15 mls @ 3.75 mls/min IV Q8H [facility]; Protocol Stop: 11/03/18 23:03 Last Admin: 11/03/18 22:09 Dose: 3.75 mls/min Documented by: [id number] Admin: 11/03/18 15:04 Dose: 3.75 mls/min Documented by: [id number] Sodium Chloride (Nss 1000ml) 1,000 mls @ 100 mls/hr IV .Q10H [facility] Stop: 11/04/18 06:00 Last Admin: 11/03/18 21:13 Dose: Not Given Documented by: [id number] Admin: 11/03/18 15:04 Dose: Not Given Documented by: [id number] Insulin Aspart (Novolog Flexpen) 0 units SC TODAY@0200 ONE; Protocol Stop: 11/04/18 02:01 Last Admin: 11/03/18 18:05 Dose: 9 units Documented by: [id number] Cosigned by: [id number] Insulin Glargine (Lantus Solostar Pen) 20 units SC NOW ONE; Protocol Stop: 11/03/18 11:31 Last Admin: 11/03/18 13:01 Dose: 20 units Documented by: [id number] Cosigned by: [id number] Insulin Glargine (Lantus Solostar Pen) 0 units SC HS ONE; Protocol Stop: 11/03/18 21:01 Last Admin: 11/03/18 22:19 Dose: Not Given Documented by: [id number] Cosigned by: [id number] Metoclopramide HCl (Reglan) 10 mg PO PREOP MARYANN Stop: 11/03/18 18:00 Last Admin: 11/03/18 06:13 Dose: 10 mg Documented by: [id number] Miscellaneous (Ortho Joint Anesthetic) Confirm Administered Dose 1 ea .ROUTE .STK-MED ONE Stop: 11/03/18 06:43 Last Admin: 11/03/18 11:55 Dose: Not Given Documented by: [id number]
[2018-11-04] MEDS ORDERED: MULTIVITAMIN TAB PO SCH (09:00)
[2018-11-04] MEDS ORDERED: LISINOPRIL/HCTZ 20/12.5MG 1 TAB TAB PO SCH (09:00)
[2018-11-04] MEDS ORDERED: ATENOLOL 25 MG TABLET PO SCH (09:00)
--- NOTE | 2018-11-04 12:16 | Orthopedic Progress Note ---
Date of Service November 04, 2018 Assessment & Plan (1) Left knee DJD: POD #1, Left TKA PT/ OT DVT proph- ASA D/C planning- Home w OPPT As per medicine. Subjective POD #1, doing well, denies sob, cp, n/v. pain controlled well. Physical Exam Physical Exam: Left knee dressings c/d/i, no drainage, No calf tenderness, toes/ ankle mobile, A&Ox3. Results & Data Vital Signs (Past 12 Hours) Vital Signs Temp Pulse Resp BP Pulse Ox 11/04/18 12:00 36.7 C 89 16 110/70 98 11/04/18 08:25 85 104/66 11/04/18 07:17 36.6 C 83 18 97/66 L 97 11/04/18 03:40 36.4 C L 87 16 101/65 95
[2018-11-04] MEDS: FLUTICASONE/SALMETEROL 250/50 (ADVAIR) 14 PUFF/1 INHALER INH SCH (12:41)
--- NOTE | 2018-11-04 12:49 | Pharmacy Report ---
Pharmacy Glycemic Short Note 2 - Date of Service November 04, 2018 - Glycemic Short BSG Results (Last 24 hours): 11/03/18 11/03/18 11/04/18 17:01 21:02 05:20 Glucose 147 H POC Glucose 136 H 131 H 11/04/18 11/04/18 08:04 12:15 Glucose POC Glucose 174 H 119 H Outpatient Anti-diabetic Regimen: * Metformin 1 g po BID * Sitagliptin 100 mg po qAM * A1c = 7.8 % on 10/22/18 Risk Factors for Insulin Resistance: * Steroids: none (did use ortho joint mix on 11/03, but it did not contain dexamethasone) * Recent Surgery: POD 1 s/p L TKA * Diet: T2DM ASSESSMENT: * 63 yo M s/p L TKA yesterday. Pharmacy consulted for glycemic management post- op. * Goal is to have all BSG's below 140-150 mg/dL in the immediate post-op period to promote wound healing and prevent infection * BSG's have ranged 119-174 mg/dL, with all BSG's below 150 mg/dL with the exception of AM fasting BSG today elevated to 174 mg/dL * Will increase Lantus to address AM fasting >150 mg/dL * Last three post-prandial BSG's within range at 136, 131 and 119 mg/dL - no change to Novolog parameters needed at this time PLAN FOR INPATIENT GLYCEMIC CONTROL: * Hold outpatient oral diabetes medications * Basal insulin * Lantus 28 units SQ x1 now * Bolus insulin * NovoLog per scale ACHS and one overnight check * Goal Range: 110-140 mg/dL * Correction Factor: 20 mg/dL/unit * Nutritional / Prandial insulin per carb ratio of 1 unit per 7 grams CHO consumed
[2018-11-04] MEDS: ATORVASTATIN 20 MG TAB PO SCH (21:09)
[2018-11-04] MEDS: SENNA 8.6 MG TAB PO SCH (21:09)
[2018-11-04] MEDS: VITAMIN B COMPLEX TAB PO SCH (21:10)
[2018-11-04] MEDS: ALLOPURINOL 100 MG TAB PO SCH (21:10)
[2018-11-05] MEDS: FLUTICASONE/SALMETEROL 250/50 (ADVAIR) 14 PUFF/1 INHALER INH SCH (00:41)
[2018-11-05] MEDS: ACETAMINOPHEN 500 MG TAB PO SCH (05:57)
[2018-11-05] MEDS: OXYCODONE HCL IR 5 MG TAB (IMMEDIATE RELEASE) PO PRN (07:12)
[2018-11-05 07:13] LABS: Hematocrit (blood only) 26.5 % (42-52); Hemoglobin 9.1 g/dL (14.0-18.0); Mean Corpuscular Hemoglobin 30.6 pg (25-34); Mean Corpuscular Hgb Conc 34.3 g/dL (32-36); Mean Corpuscular Volume 89.2 fL (80-100); Mean Platelet Volume 9.9 fL (7.4-10.4); Platelet Count 218 K/uL (130-400); RDW Coefficient of Variation 14.4 % (11.5-14.5); RDW Standard Deviation 47.4 fL (36.4-46.3); Red Blood Count 2.97 M/uL (4.7-6.1); White Blood Count 11.25 K/uL (4.8-10.8)
[2018-11-05] MEDS: DOCUSATE SODIUM 100 MG CAP PO SCH (07:13)
[2018-11-05] MEDS: MULTIVITAMIN TAB PO SCH (07:13)
[2018-11-05] MEDS: PANTOprazole 40 MG TAB PO SCH (07:13)
[2018-11-05 07:14] LABS: BUN Creatinine Ratio 15.7 (10-20); Calcium 8.3 mg/dl (8.5-10.1); Creatinine Clr Calc Pharmacy 69.8 ml/min; Est GFR (African American) 61.9; Est GFR (Non-African American) 53.4; Potassium 4.6 mmol/L (3.5-5.1)
[2018-11-05] MEDS: ASPIRIN 81 MG ECTAB PO SCH (07:14)
[2018-11-05] MEDS: INSULIN ASPART 100 UNITS/ML 3 ML PEN SC SCH (07:22)
--- NOTE | 2018-11-05 07:38 | Orthopedic Progress Note ---
Date of Service November 05, 2018 Assessment & Plan (1) Left knee DJD: POD #2, Left TKA PT/ OT DVT proph- ASA D/C planning- Home w OPPT today. As per medicine. Subjective POD #2, doing well, denies sob, cp, n/v. pain controlled well. Physical Exam Physical Exam: Left knee silverlon c/d/i, no drainage, no calf tenderness, toes/ ankle mobile, A&Ox3. Results & Data Vital Signs (Past 12 Hours) Vital Signs Temp Pulse Resp BP Pulse Ox 11/05/18 06:33 37.0 C 112 H 16 108/72 94 11/04/18 23:26 36.8 C 101 H 16 118/74 95
--- NOTE | 2018-11-05 08:37 | Hospitalist Progress Note ---
Date of Service November 05, 2018 Assessment & Plan (1) Left knee DJD: This is a 63-year-old male who has a known significant past medical history of T2DM, HTN, JAKE on CPAP, asthma, GERD, gout, obesity who presents to [facility] for elective left TKA. POD #[address] Awa FAROOQ 10ml tolerated procedure well pain/wound management per ortho therapy and activity as directed by ortho incentive spirometry q1ha trend H/H Patient tachycardic today. Likely in setting of acute pain vs rebound from beta cy being held due to lower blood pressure. Pt asymptomatic and otherwise hemodynamically stable. No s/sx of infection, H/H stable Resume atenolol now (2) Anemia: Hemoglobin 11.5 preoperatively Hemoglobin today 9.1 Expected acute blood loss anemia (3) CKD (chronic kidney disease) stage 3, GFR 30-59 ml/min: Baseline creatinine 1.5-1.6 Creatinine improved 1.4 today Recommend avoiding NSAIDs or nephrotoxic agents (4) Diabetes mellitus, type 2: A1C 7.8 on multi drug regimen of metformin and januvia (plan to start jardiance as outpt after procedure) ortho consulted glycemic pharmacist appreciate their input blood sugar controlled, resume home regimen at discharge (5) Hypertension: blood pressure improving resume atenolol today and resume lisinopril/hctz at discharge (6) Hyperlipidemia: continue statin (7) Sleep apnea: CPAP at HS (8) Asthma: no acute exac continue advair (9) GERD (gastroesophageal reflux disease): continue PPI (10) Morbid obesity: Encouraged lifestyle modifications BMI 38.5 (11) DVT prophylaxis: ASA BID Per ortho Disposition: Discharge to home today Follow up: PCP Dr. Xiong upon discharge Patient was seen and examined in collaboration with Dr. Spear, please see addendum Thank you for this consultation. We will follow the patient with you during their hospital stay. You can reach a member of the [facility] Hospitalist Team 29/09 via pager @ [phone]. Supervising Physician Co-Signing Physician Notes Patient is seen and examined at bedside. Feels tired today plan to be discharged home complains of pain at surgical site. Had physical therapy today. Offers no other complaints. Renal function improved. On exam patient is obese, no apparent distress, normocephalic atraumatic, lungs are clear to auscultation, S1-S2, no murmur, abdomen soft nontender, grossly no focal neurological de ficits, left knee surgical site in dressing, no pedal edema. S/P left TKA POD #2. Acute blood loss anemia. Monitor CBC. continue bowel regimen to prevent constipation. Pain control, wound care, DVT Px and activity as per primary team. DM II: Continue insulin sliding scale. Hold p.o. home regimen. Asthma: Well-controlled, no signs of exacerbation. Continue home inhaler CKD III: monitor renal function. Renal function improved. Avoid NSAIDs as able. encourage increased oral fluid intake. I personally reviewed the record. Patient is interviewed and examined at bedside. Patient's care is coordinated with Trini Gore PA-C. Please refer to the documentation above for details of patient's presentation and for discussion of other issues. Subjective Patient was seen and examined in room 321. Follow-up POD #2 left TKA. Overall feels, "tired." Did not sleep well last night secondary to interruptions. Pain currently absent at rest. Complains of increased pain with movement and after therapy yesterday. Denies fever, chills, sweats, lightheadedness, dizziness with ambulation, chest pain, shortness of breath, JEFFERY palpitations, cough, hemoptysis, nausea, vomiting, abdominal pain. He is passing gas. Plan is to be discharged today. Offers no other concerns or complaints. Review of Systems Review of Systems: All systems reviewed & are unremarkable except as noted in HPI & below Physical Exam Physical Exam: Gen: WD/WN, male, sitting up in bed, NAD, A&O x3 HEENT: Normocephalic, atraumatic, conjunctivae moist, sclerae anicteric, mucous membranes moist. Lung: Clear to Auscultation bilaterally, no wheezes/rales/rhonchi Heart: Regular rate, regular rhythm, no murmurs, rubs, or gallops Abdomen: Protuberant abdomen, soft, NT, ND +BS x 4 Extremities: LLE TKA dressing CDI, SCD/TEDS in place Skin: Warm, no rash, negative turgor. Results & Data Vital Signs (Past 12 Hours) Vital Signs Temp Pulse Resp BP Pulse Ox 11/05/18 06:33 37.0 C 112 H 16 108/72 94 11/04/18 23:26 36.8 C 101 H 16 118/74 95 Laboratory Results Short CBC 11/05/18 Range/Units 06:27 WBC 11.25 H (4.8-10.8) K/uL Hgb 9.1 L (14.0-18.0) g/dL Hct 26.5 L (42-52) % Plt Count 218 (130-400) K/uL BMP 11/05/18 06:27 Sodium 138 Potassium 4.6 Chloride 107 Carbon Dioxide 23 BUN 22 H Creatinine 1.41 H D Glucose 149 H Calcium 8.3 L
--- NOTE | 2018-11-16 22:41 | Discharge Summary ---
CHIEF COMPLAINT: Chronic left knee pain. HISTORY OF PRESENT ILLNESS: This is a 63-year-old male patient of Dr. Billnigs's complaining of chronic left knee pain, longstanding, now progressively getting worse. The patient failed conservative treatment and elected to proceed with a left total knee arthroplasty. PAST MEDICAL HISTORY: Heart murmur, hypertension, hypercholesterolemia, asthma, sleep apnea with the use of CPAP, diabetes mellitus, osteoarthritis, acid reflux, hiatal hernia, obesity and dental issues. POSTOPERATIVE COURSE: The patient underwent a left total knee arthroplasty on 11/03/2018. He was followed closely with medical consultation, DVT prophylaxis in the form of aspirin, physical therapy and pain control. The patient did well postoperatively and patient was discharged home with outpatient physical therapy on postoperative day #2. PHYSICAL EXAMINATION: On discharge, left knee Silverlon dressing was clean, dry and intact. There was no redness or drainage. He had no calf tenderness. Negative Homans sign. Toes and ankle were mobile. Neurologically and neurovascularly, he was intact in his left lower extremity. DIAGNOSES: Status post left total knee arthroplasty with a history of heart murmur, hypertension, hypercholesterolemia, sleep apnea with CPAP, diabetes mellitus, osteoarthritis, acid reflux, hiatal hernia, obesity and dental issues. PLAN: The patient was discharged home on postoperative day #2. He will continue his preadmission medications with the addition of aspirin twice daily for DVT prophylaxis and he will attend outpatient physical therapy. He will follow up with Dr. Billings as an outpatient as scheduled.
== END 2018-11-05 11:50 | disposition home or self-care (01) | DRG 470 ==
LOC: ASU 05:13 → 3E 09:55
DX: R01.1 Cardiac murmur, unspecified; Z96.651 Presence of right artificial knee joint; E78.00 Pure hypercholesterolemia, unspecified; J45.909 Unspecified asthma, uncomplicated; M17.12 Unilateral primary osteoarthritis, left knee; E66.9 Obesity, unspecified; I10 Essential (primary) hypertension; K44.9 Diaphragmatic hernia without obstruction or gangrene; K21.9 Gastro-esophageal reflux disease without esophagitis